=== PATIENT | female | born 1950 | race Caucasian/White ===

== ENCOUNTER 2022-07-03 10:20 | Emergency (ER) | payer MEDICARE, OTHER, SELFPAY ==
[2022-07-03 10:21] VITALS: BP 108/70; PULSE 62; RESP 14; TEMP 36.1; O2SAT 95; BMI 44.9
--- NOTE | 2022-07-03 10:27 | EKG12_ITS ---
Test Reason : REPEAT Blood Pressure : / mmHG Vent. Rate : 048 BPM Atrial Rate : 048 BPM P-R Int : 166 ms QRS Dur : 074 ms QT Int : 470 ms P-R-T Axes : 042 -10 012 degrees QTc Int : 419 ms Sinus bradycardia Low voltage QRS Borderline ECG Confirmed by GURINDER CHIRINOS MD ([id number]), digital editor CHIDI CASANOVA ([id number]) on 07/04/2022 12:45:14 PM Referred By: Confirmed By:GURINDER CHIRINOS MD
--- NOTE | 2022-07-03 10:28 | ED.VIS.CHEST ---
HPI History of Present Illness Chief Complaint: Chest Pain Informant: patient Onset/Context/Timing Onset: Today Narrative Narrative: Reports midsternal chest pain while taking a shower around 8:45 AM today. Pain to her back, reports dyspnea nausea left shoulder neck pain. EMS contacted. Status post 4 baby aspirin's 1 nitro with minimal relief. History of hyperlipidemia. Remote tobacco 30 years ago. Mother had NH at her current age in her 70s, father NH around 65. Stress test years ago. No heart caths. Denies recent travel, surgeries, or immobilizations. No history of PE or DVT PE. Currently symptoms of 7. Does not want any additional medication at this time. Denies any recent cough. EMS EKG reviewed sinus rhythm no acute findings. Prior Similar Symptoms: No CVD Risk Factors: Positive for Hypercholesterolemia PE Risk Factors: Negative for Recent Travel/Surgery, Recent Immobilization or Prior DVT or PE PFSH PFS Home Medications atorvastatin 20 mg tablet 20 mg PO DAILY 07/03/22 [History Last Taken Unknown] omeprazole 40 mg capsule,delayed release 40 mg PO DAILY 07/03/22 [History Last Taken Unknown] Allergy/AdvReac Type Severity Reaction Status Date / Time No Known Allergies Allergy Verified 07/03/22 11:09 Social History Smoking Status: Former smoker ROS ROS ED Constitutional Constitutional ED: Denies chills, fever(s) or sweats Eyes Eyes: Denies change in vision ENT ENT ED: Denies dysphagia or sore throat Cardiovascular Cardiovascular: Reports chest pain; Denies leg edema, palpitations or racing heartbeat Respiratory/Chest Respiratory/Chest: Reports dyspnea; Denies cough or dyspnea on exertion Gastrointestinal Gastrointestinal: Denies abdominal pain, diarrhea, nausea or vomiting Genitourinary Genitourinary ED: Denies dysuria, hematuria or urinary frequency Musculoskeletal Musculoskeletal: Denies back pain, extremity pain or neck pain Integumentary Denies rash or wounds Neurologic Neurologic: Denies headache(s), paresthesias or weakness EXAM Physical Exam Const Vital Signs: 07/03/22 10:21 07/03/22 10:31 07/03/22 11:21 Temperature 97.0 F L Temperature Source Temporal Pulse Rate 62 48 L Respiratory Rate 14 12 Blood Pressure 108/70 106/61 Blood Pressure Mean 82 76 Pulse Ox 95 97 Oxygen Delivery Method Room Air Room Air Room Air 07/03/22 12:00 07/03/22 13:40 07/03/22 15:25 Temperature Temperature Source Pulse Rate 48 L 51 L 82 Respiratory Rate 12 18 16 Blood Pressure 99/47 L 102/47 L 120/69 Blood Pressure Mean 64 65 Pulse Ox 96 97 97 Oxygen Delivery Method Room Air Room Air Positive well nourished and well developed General Appearance ED: well developed and NAD HEENT Reports moist mucous membranes normocephalic and atraumatic Eyes PERRL, EOMs intact bilaterally and conjunctivae normal General Eye ED: Yes normal appearance of both eyes Neck no lymphadenopathy and supple General: Negative for tenderness Chest Wall Chest Narrative: Tenderness chest wall lateral to the sternum. No crepitus. No ecchymosis. Chest: tenderness Resp normal respiratory effort and normal air movement Effort and Inspection: symmetric chest movement; Negative for respiratory distress Cardio regular rate, regular rhythm and no murmurs Peripheral Pulses: pulses 2+ throughout GI normal to inspection, nondistended, normoactive bowel sounds and non-tender Palpation: Negative for guarding or rebound tenderness present Back/Spine no CVA tenderness and no thoracic nor lumbar tenderness Extremity normal to inspection General Extremety ED: Negative for edema or tenderness General Extremity: Negative for edema Neuro oriented x3 and no sensory deficits noted Sensorium / Orientation: awake and alert Skin no rashes or lesions noted and no wounds MDM MDM MDM Narrative Medical decision making narrative: Interventions / MDM: Differential diagnosis: Chest pain, ACS, costochondritis Diagnosis considered but do not suspect: Pneumothorax however normal lung sounds. Aortic dissection, however blood pressure 108, symmetric pulses bilaterall, no clinical significant distress. Pulmonary embolism however no risk factors, pulse ox 95% on room air. My EKG interpretation: Sinus rate of 53, no ST changes isolated T wave version leads III nonspecific. EKG #2 at 1307, unchanged heart rate 48. No signs of heart block. Imaging independently reviewed and interpreted by myself: Chest x-ray 2 views: No acute process External documents reviewed: N/A Test considered but not ordered:N/A ED course: Patient chest pain she declined any additional medication after initial evaluation. Initial cardiac work-up troponin returned for two-view chest. Negative. Basic labs were. Reevaluation declining any strong pain medications. With reproducible pain left chest wall she was given Toradol. Delta troponin returned negative. Re-evaluation: stable, however discussed to have discomfort improving with Toradol. There are reproducible symptoms. Repeat EKG unchanged on rhythm. Discussed further with her discomfort will send for CT of the chest for further evaluation. She agrees with this. CT angiogram negative for acute process. She is reassured. Symptoms are improving. She has NSAIDs at home between ibuprofen and Aleve. Discussed appropriate use depend on which when she chooses. She will follow-up with her PCP with return precautions. All questions were answered. Disposition discussed with patient/family/significant other: Patient and family Case discussed with consulting clinician: N/A Lab Data Attestation: I reviewed the patient's lab results. Labs: Laboratory Results - last 24 hr 07/03/22 07/03/22 07/03/22 10:10 10:10 12:30 WBC 8.5 RBC 5.02 Hgb 14.6 Hct 45.5 MCV 90.6 MCH 29.1 MCHC 32.1 RDW Std Deviation 46.4 H RDW Coeff of Amna 14.0 Plt Count 219 MPV 11.2 Immature Gran % (Auto) 0.400 Neut % (Auto) 59.4 Lymph % (Auto) 28.7 [place] % (Auto) 8.0 Eos % (Auto) 3.0 Baso % (Auto) 0.5 Absolute Neuts (auto) 5.0 Absolute Lymphs (auto) 2.43 Nucleated RBC % 0 Sodium 145 Potassium 4.1 Chloride 112 H Carbon Dioxide 27.0 Anion Gap 6 BUN 17 Creatinine 1.01 Estim Creat Clear Calc 77.42 Est GFR (MDRD) Af Amer 69 Est GFR (MDRD) Non-Af 57 L BUN/Creatinine Ratio 16.8 Glucose 111 H Calcium 9.2 Troponin I High Sens 4 5 Radiography Diagnostic Testing: Clinical Impression(s) from Imaging Studies Chest X-Ray 07/03/22 10:40 IMPRESSION: No acute cardiopulmonary disease. Electronically Signed: Isrrael Wells MD at 11:02 EDT , Chest CTA 07/03/22 13:21 IMPRESSION: 1. No evidence of acute pulmonary embolism. 2. No acute cardiopulmonary abnormality. Electronically Signed: Isrrael Wells MD at 14:32 EDT , Discharge Plan Triage Chief Complaint: Chest Pain ED Provider: Patrick Rocha Dx/Rx/DC Orders Clinical Impression: Chest pain, Costochondritis, acute Instructions: ED Chest Wall Pain, Costochondritis Prescriptions: No Action atorvastatin 20 mg tablet 20 mg PO DAILY omeprazole 40 mg Capsule,Delayed Release(Dr/Ec) 40 mg PO DAILY Primary Care Provider: Fahad Treadwell Referrals: Fahad Treadwell, [Primary Care Provider] - 3-5 Days Activity Restrictions/Additional Instructions: Cardiac work-up negative troponin x2. CTA chest also negative. Use ibuprofen up to 600 mg every 6 hours or if you have Aleve use that every 12 hours and monitor symptoms. Follow-up with your doctor for further testing possible stress test, return for any worsening symptoms. Disposition Disposition: Home, Self Care Discharge Date/Time: 07/03/22 15:26
--- NOTE | 2022-07-03 10:29 | NURSING ---
NO OLD EKGS
[2022-07-03 10:37] LABS: Absolute Lymphocyte Count 2.43 X10^3/uL (0.83-4.51); Basophil# 0.04 X10^3/uL; Basophil% 0.5 % (0-1); Eosinophil# 0.25 X10^3/uL; Hematocrit 45.5 % (37-47); Hemoglobin 14.6 g/dL (12.0-15.0); Lymphocyte # 2.43 X10^3/ul (0.83-4.51); Lymphocyte % 28.7 % (19-41); Mean Corp Hgb Conc 32.1 g/dL (32-36); Mean Corpuscular Hgb 29.1 pg (27.0-32.0); Mean Corpuscular Volume 90.6 fL (81-99); Mean Platelet Vol. 11.2 fl (6.2-12.0); Monocyte# 0.68 X10^3/uL; NRBC Flagged by Analyzer 0 % (0-5); Neutrophil # 5.04 X10^3/uL (2.7-7.7); Neutrophil % 59.4 % (47-70); Platelet Count 219 K/mm3 (150-450); RBC Distribution Width SD 46.4 fl (35.1-43.9); Red Blood Count 5.02 M/mm3 (4.2-5.4); White Blood Count 8.5 K/mm3 (4.4-11.0)
--- NOTE | 2022-07-03 10:40 | RAD_ITS ---
EXAM: XR CHEST, 2 VIEWS CLINICAL INDICATION: chest pain TECHNIQUE: Frontal and lateral views of the chest. This report was created using [employer] report generation technology. COMPARISON: None. FINDINGS: LUNGS AND PLEURAL SPACES: Normal. No consolidation or edema. No pneumothorax. No effusion. HEART: Normal heart size. MEDIASTINUM: No mediastinal or hilar mass. BONES/JOINTS: No acute abnormality. RAD/Chest PA and Lateral IMPRESSION: No acute cardiopulmonary disease. Electronically Signed: Isrrael Wells MD at 11:02 EDT ,
[2022-07-03 10:53] LABS: Anion Gap 6 (5-15); BUN 17 mg/dL (7-18); BUN/Creat Ratio 16.8 RATIO (10-20); Calcium,Total 9.2 mg/dL (8.5-10.1); Chloride 112 mmol/L (98-107); Creatinine, Serum 1.01 mg/dL (0.55-1.02); EST Glomerular Filtration Rate 57 mL/min (>60); Est Glom Filt Rate - Afr Amer 69 mL/min (>60); Estimated Creatinine Clearance 77.42 ml/min; Glucose 111 mg/dL (74-106); Potassium 4.1 mmol/L (3.5-5.1); Sodium Level 145 mmol/L (136-145); Troponin-I HS (w/2H Reflex) 4 pg/mL (3.0-54.0)
[2022-07-03 11:21] VITALS: BP 106/61; PULSE 48; RESP 12; O2SAT 97
[2022-07-03] MEDS: Ketorolac 15 MG/ML Vial IV (11:29)
[2022-07-03 12:00] VITALS: BP 99/47; PULSE 48; RESP 12; O2SAT 96
[2022-07-03 12:33] LABS: Reflex Troponin-HS? (from REC) Y
[2022-07-03 12:58] LABS: Troponin-I HS 5 pg/mL (3.0-54.0)
--- NOTE | 2022-07-03 13:06 | EKG12_ITS ---
Test Reason : CP Blood Pressure : / mmHG Vent. Rate : 053 BPM Atrial Rate : 053 BPM P-R Int : 170 ms QRS Dur : 070 ms QT Int : 454 ms P-R-T Axes : 036 -13 008 degrees QTc Int : 426 ms Sinus bradycardia Otherwise normal ECG Confirmed by CANDIS FLOWERS, GURINDER ([id number]), web editor CHIDI CASANOVA ([id number]) on 07/04/2022 12:45:02 PM Referred By: Confirmed By:GURINDER CHIRINOS MD
--- NOTE | 2022-07-03 13:21 | CT_ITS ---
EXAM: CT ANGIOGRAPHY CHEST WITHOUT AND WITH INTRAVENOUS CONTRAST CLINICAL INDICATION: chest pain TECHNIQUE: Helically acquired angiography images were obtained of the chest without and with intravenous contrast. This CT exam was performed using one or more of the following dose reduction techniques: automated exposure control, adjustment of the mA and/or kV according to patient size, and/or use of iterative reconstruction technique. This report was created using [employer] report generation technology. MIP reconstructed images were created and reviewed. CONTRAST: IV 100mL [id number] COMPARISON: None. FINDINGS: PULMONARY ARTERIES: Normal. Normal in caliber. No evidence of pulmonary embolism. AORTA: Normal. No aortic aneurysm or dissection. GREAT VESSELS OF AORTIC ARCH: Normal. Normal in caliber. No evidence of dissection. LUNGS AND PLEURAL SPACES: Normal. No mass. No consolidation or edema. No pleural effusion or thickening. No pneumothorax. HEART: Heart size. No pericardial effusion. No signs of right heart strain, ratio of right ventricle to left ventricle measures less than 1. No coronary artery calcification. MEDIASTINUM: Normal. No mediastinal or hilar adenopathy. Esophagus is unremarkable. No hiatal hernia. THYROID: Concentrically calcified 16mm right thyroid nodule. BONES/JOINTS: Normal. No suspicious lytic or blastic abnormality. CT/CTA Chest W/WO Contrast IMPRESSION: 1. No evidence of acute pulmonary embolism. 2. No acute cardiopulmonary abnormality. Electronically Signed: Isrrael Wells MD at 14:32 EDT ,
[2022-07-03 13:40] VITALS: BP 102/47; PULSE 51; RESP 18; O2SAT 97
[2022-07-03 15:25] VITALS: BP 120/69; PULSE 82; RESP 16; O2SAT 97
== END 2022-07-03 15:26 | disposition home or self-care (01) ==
PROVIDERS: Emergency Provider Emergency Medicine; PCP Family Medicine; Visit Provider Emergency Medicine
DX: M94.0 Chondrocostal junction syndrome [Tietze] (principal); E78.00 Pure hypercholesterolemia, unspecified; M54.9 Dorsalgia, unspecified; Z87.891 Personal history of nicotine dependence; R07.9 Chest pain, unspecified
CPT/HCPCS: 71046; 71275; 80048; 84484; 85025; 93005; 96361; 96374; 99285; J7030; Q9967; A4216